=== PATIENT | female | born 1995 | race Caucasian/White ===

== ENCOUNTER 2016-11-02 01:14 | Emergency (ER) | payer OTHER ==
[~2016-11-02] VITALS: Ht 182.9 cm; Wt 145.4 kg
[~2016-11-02 01:14] MED LIST: HYDR-4003 PO; HYDR50CA PO; LACT10SO60 PO; ONDA4TAB9 PO; OXYC-465 PO
[2016-11-02 01:19] VITALS: BP 138/97; PULSE 100; RESP 18; O2SAT 99
--- NOTE | 2016-11-02 01:33 | ED.REPORT ---
HPI-Abd Pain F Under 40 Date of Service Nov 02, 2016 ED Provider: Devin Thompson DO A 21 year old female with a history of UTI, cholecystectomy, and obesity presents to the ED complaining of abnormal vaginal bleeding. The pt has been bleeding consistently for approximately two months. She estimates that this began on 09/24/2016. The first few weeks were characterized by heavy bleeding with clots, though the bleeding has decreased somewhat since. The pt also reports diarrhea for the last two weeks, though she denies fever or hematochezia. The pt began to experience heavy bleeding again tonight as well as sharp lower pelvic pains. This pain has not occurred before. The pt denies the possibility of and reports regular periods before the onset of this bleeding. She also denies pelvic trauma, abnormal vaginal discharge, ovarian cysts, or history of sexually transmitted infections. She is not currently sexually active and has not had intercourse since the end of last year. Her mother has experienced similar symptoms before, causing concern for ovarian cancer. The pt has not seen a trading manager since this began. Nursing Notes Stated Complaint: VAGINAL BLEEDING AND PAIN Chief Complaint: Female Abdominal Pain Nursing Notes Reviewed: Yes Allergies: Coded Allergies: No Known Allergies (Unverified , 04/15/16) Scheduled Lactulose (Lactulose) 20 Gm/30 Ml Solution 20 GM PO TIDAC Scheduled PRN Hydrocodone-Acetaminophen 5-325 mg (Hydrocodone-Acetaminophen 5-325 mg) 1 Each Tablet 1 TABLET PO Q4H PRN PRN For Pain Hydroxyzine Pamoate (Vistaril) 50 Mg Capsule 50 MG PO HS PRN PRN For Insomnia Ondansetron ODT (Zofran ODT) 4 Mg Tablet 4 MG PO Q4H PRN PRN For Nausea oxyCODONE-Acetaminophen 5-325 mg (oxyCODONE-Acetaminophen 5-325 mg) 1 Each Tablet 1-2 TAB PO Q6H PRN PRN For Pain oxyCODONE-Acetaminophen 7.5-325 mg (oxyCODONE-Acetaminophen 7.5-325 mg) 1 Each Tablet 1-2 TAB PO Q6H PRN PRN For Pain General Time Seen by MD: 01:32 Chief Complaint Abdominal pain, Vaginal bleeding Hx Obtained From: Patient Arrived By: Walk-in Sudden in Onset?: No Onset Occurred: More than a week ago... (2 months) Symptom Duration: Since onset Recent Healthcare: No recent doctor visit, No recent hospitalization Similar Sx Previous: No Past Medical History Past Medical History Hx of UTI Reports: Obesity Past Surgical History Reports: Cholecystectomy Family History noncontributory Smoking History Never Smoker Social History Alcohol Use: "Social" Other Social History: Good social support, Local resident Ambulatory Status Independent Review of Systems Constitutional: Denies: Fever Respiratory: Denies: Non-productive cough Cardiovascular: Denies: Chest pain GI: Reports: Abdominal pain (pelvic pain), Diarrhea, Denies: Hematochezia Female: Reports: Vaginal bleeding - abnl, Denies: Vaginal discharge Musculoskeletal: Denies: Back pain, Neck pain Complete sys rev & neg: except as marked. Physical Exam Initial Vital Signs Vital Signs (First) Date Time Temp Pulse Resp B/P Pulse Ox O2 Delivery O2 Flow Rate FiO2 11/02/16 01:19 36.1 100 18 138/97 99 Room Air Initial VS: Reviewed, Vital signs abnormal General/Constitutional: Awake, Alert Respiratory / Chest: Atraumatic, Breath sounds NL, Breath sounds = bilat, No respiratory distress Cardiovascular: Heart rate NL, Regular rhythm, Heart sounds NL Abdomen: Atraumatic, Soft diffuse lower pelvic pain Back: Atraumatic, Full range of motion Head / Eyes: Atraumatic, Normocephalic, PERRL, EOMI ENT: Atraumatic, Airway patent, Mucous membranes moist Skin: Atraumatic, Color NL, No rash, Warm, Dry Neurologic: Oriented X3, Speech NL, No motor deficits, No sensory deficits Neck: Atraumatic, Supple, Full range of motion Upper Extremity / MS: Atraumatic, Full range of motion Lower Extremity / Pelvis / MS: Atraumatic, Full range of motion Psychiatric: Affect NL, Mood NL Interpretation & Diagnostics US PELVIS TRANSABDOMINAL IMPRESSION: No acute abnormality. Radiologist: Rico Pratt MD 11/02/2016 - 3:36:33 AM PST Lab Results Interpretation Result Diagram: 11/02/16 0140 11/02/16 0140 Test 11/02/16 01:40 11/02/16 02:00 White Blood Count 12.4th/mm3 (3.8-10.1) Red Blood Count 5.12mil/mm3 (3.90-5.20) Hemoglobin 13.6g/dL (12.0-15.6) Hematocrit 41.6% (35.0-46.0) Mean Corpuscular Volume 81.3fL (81-100) Mean Corpuscular Hemoglobin 26.6pg (27.0-35.0) Mean Corpuscular Hemoglobin Concent 32.7% (32.0-37.0) Red Cell Distribution Width 14.9% (12.3-15.4) Platelet Count 292bil/L (150-400) Neutrophils (%) (Auto) 64.3% (40-74) Lymphocytes (%) (Auto) 27.5% (14-46) Monocytes (%) (Auto) 6.2% (4-12) Eosinophils (%) (Auto) 1.5% (0-5) Basophils (%) (Auto) 0.3% (0-3) Sodium Level 138mEq/L (134-144) Potassium Level 3.8mEq/L (3.5-5.2) Chloride Level 104mEq/L (97-108) Carbon Dioxide Level 19mmol/L (18-29) Blood Urea Nitrogen 9mg/dL (6-20) Creatinine 0.46mg/dL (0.57-1.00) Estimat Glomerular Filtration Rate 243mL/min (>59) Glucose Level 99mg/dL (60-99) Calcium Level 9.1mg/dL (8.5-10.1) Total Bilirubin 0.2mg/dL (0.0-1.2) Aspartate Amino Transf (AST/SGOT) 12U/L (0-50) Alanine Aminotransferase (ALT/SGPT) 12U/L (0-32) Alkaline Phosphatase 77U/L (25-150) Total Protein 7.6g/dL (6.4-8.4) Albumin 4.0g/dL (3.4-5.0) Lipase 36U/L (13-60) HCG Beta Subunit 0.500mIU/mL Urine Color Yellow (YELLOW) Urine Appearance Clear (CLEAR,HAZY) Urine pH 7.0 (5.0-8.0) Urine Specific [place] 1.020 (1.003-1.035) Urine Protein Negativemg/dL (NEG,TRACE) Urine Glucose (UA) Negativemg/dL (NEGATIVE) Urine Ketones Negativemg/dL (NEGATIVE) Urine Occult Blood Large (NEGATIVE) Urine Nitrite Negative (NEGATIVE) Urine Bilirubin Negative (NEGATIVE) Urine Urobilinogen Normalmg/dL (NORMAL) Urine Leukocyte Esterase Negative (NEGATIVE) Urine RBC >50/hpf (0-2) Urine WBC 0-5/hpf (0-5) Urine Epithelial Cells Moderate/hpf (NONE-MOD) Urine Crystals None seen (NONE SEEN) Urine Bacteria Moderate/hpf (NONE-FEW) Urine Hyaline Casts None/lpf (NONE) Urine Granular Casts None seen (NONE SEEN) Urine Waxy Casts None seen (NONE SEEN) Urine Red Blood Cell Casts None seen (NONE SEEN) Urine White Blood Cell Casts None seen (NONE SEEN) Urine Mucus Present (None Seen) Urine Trichomonas None seen (NONE SEEN) Urine Yeast None (NONE SEEN) Urinalysis Comment None Urine Culture Reflexed Indicated Lab Results Interpretation: Mild elevation of white count, no anemia Pulse Oximetry Interpretation Pulse Oximetry Interpretation: 99% on room air Pulse Oximetry: Pulse Ox normal Re-Eval/Medical Decision Med Decision/Clinical Course Laboratory is unremarkable. Ultrasound shows no dangerous cause of your pain. Oxycodone/APAP 5/325, one or 2 every 4-6 hours as needed for severe pain, #10 prescription written. Follow-up with your regular doctor in the next day or 2 for further evaluation and treatment. If your bleeding persists you may need hormonal supplementation. Source of Hx: Old records Re-Evaluation/Progress : Time of Eval: 03:24 Re-Evaluation/Progress Note: Care assumed by Dr. Ureña. Discussed the ultrasound result with the patient. No dangerous cause identified. Patient states that she has not had any abnormal vaginal discharge. She is not currently sexually active and she has not had intercourse since the end of last year. Patient will receive additional pain medication and should follow-up with her PCP. Patient understands and agrees with the plan to be discharged home. Discharge instructions and follow-up discussed. All questions were addressed. Return to the ED warnings given. Counseled Regarding: Diagnosis, Need for follow-up, When/why to return to ED Discharge & Departure Shift Change Sign-Out Patient Care Transferred: Yes Discussed Complaint(s): Yes Laboratory Evaluation: Lab evaluation discussed Imaging Studies: Ordered, not yet done Awaiting US result Primary Impression: Pelvic pain Additional Impression: Vaginal bleeding Disposition: Home Discharge Condition All VS Reviewed: Yes Condition: Stable Patient Instructions: Acute Abdominal Pain (ED) Additional Instructions: Laboratory is unremarkable. Ultrasound shows no dangerous cause of your pain. Oxycodone/APAP 5/325, one or 2 every 4-6 hours as needed for severe pain, #10 prescription written. Follow-up with your regular doctor in the next day or 2 for further evaluation and treatment. If your bleeding persists you may need hormonal supplementation. Referrals: Regina Mata ARNP (PCP) Care Transferred to: Dr. Ureña Care Transferred at: 02:30 Ana Maria Attestation Portions of this note were transcribed by Maverick Huerta and Asuncion Brandon. I, Dr. Thompson and Dr. Ureña personally performed the history, physical exam and medical decision-making; I reviewed and confirmed the accuracy of the information in the transcribed note. Signed by: Ana Maria Butler, 11/02/2016 0149 Signed by: Ana Maria Argueta, 11/02/2016 0433 copies to: Regina Mata ARNP Beia, Todd P DO Nov 02, 2016 01:33 MAVERICK HUERTA Nov 02, 2016 01:44 Asuncion Brandon Nov 02, 2016 03:28 Shane Ureña MD Nov 02, 2016 03:31
[2016-11-02] MEDS ORDERED: 0.9% Sodium Chloride 1,000 ML IV ONE (01:40)
[2016-11-02 02:15] LABS: APPEARANCE,URINE CLEAR (CLEAR,HAZY); COLOR,URINE YELLOW (YELLOW); OCCULT BLOOD,URINE LARGE (NEGATIVE); UROBILINOGEN,URINE NORMAL (NORMAL)
[2016-11-02 02:20] LABS: BASOPHILS % (AUTO) 0.3 % (0-3); EOSINOPHILS % (AUTO) 1.5 % (0-5); MONOCYTES % (AUTO) 6.2 % (4-12); Mean Corpuscular Hemoglobin 26.6 pg (27.0-35.0); Mean Corpuscular Volume 81.3 fL (81-100); NEUTROPHILS % (AUTO) 64.3 % (40-74); Platelet Count 292 bil/L (150-400)
[2016-11-02] MEDS ORDERED: HYDROmorphone 0.5 mg/0.5 mL iSecure Syringe IVPUSH PRN (03:10)
[2016-11-02] MEDS ORDERED: OXYC1TAB24 PO (03:32)
[2016-11-02 04:12] VITALS: BP 154/91; PULSE 80; O2SAT 99
--- NOTE | 2016-11-02 08:45 | DRSVH ---
PROCEDURE: US PELVIC SONOGRAM + TRANSVAGINAL SONOGRAM INDICATIONS: sudden onset pelvic pain, eval for torsion TECHNIQUE: Real-time scanning was performed of the pelvic organs, with image documentation. Additional endovagi nal scanning was necessary due to incomplete visualization of the adnexal and endometrial structures by transabdominal scanning. COMPARISON: None. FINDINGS: (orthogonal measurements) Uterus size: 6.68 cm, 2.55 cm, 2.97 cm Endometrium thickness: 9.60 mm Right ovary size: 1.99 cm, 1.26 cm, 2.14 cm Left ovary size: Suboptimally suboptimally visualized. Transabdominal scanning: Limited scanning through the kidneys shows no hydronephrosis. No pathologi c free abdominal or pelvic fluid. Endovaginal scanning: Uterus: Uterus is normal in size and appearance. Endometrium is within normal physiologic limits. Ovaries: Within normal physiologic limits. IMPRESSION: Left ovary suboptimally visualized otherwise no source for pelvic pain identified. Dictated by: German MORRISON Interpreted: Enma Matias MD on 11/02/2016 at 8:44 Transcribed by: OTTONIEL on 11/02/2016 at 8:45 Approved by: Enma Matias M.D. on 11/02/2016 at 11:48
== END 2016-11-02 04:14 | disposition home or self-care (01) ==
LOC: SED 01:14
DX: R10.2 Pelvic and perineal pain (principal); N93.9 Abnormal uterine and vaginal bleeding, unspecified
CPT/HCPCS: 36415; 76830; 76856; 80053; 81000; 81025; 83690; 84702; 85025; 87086; 87088; 87491; 87591; 96361; 96374; 96375; 99285; J1170; J7030

== ENCOUNTER 2017-01-08 22:07 | Emergency (ER) | payer OTHER ==
[~2017-01-08] VITALS: Ht 182.9 cm; Wt 136.4 kg
[~2017-01-08 22:07] MED LIST changes: +OXYC1TAB24 PO
[2017-01-08 22:17] VITALS: BP 122/91; PULSE 113; RESP 22; O2SAT 98
--- NOTE | 2017-01-08 22:36 | ED.REPORT ---
HPI-Extremity Problem Lower Date of Service January 08, 2017 ED Provider: Devin Thompson DO A 21 year old female with a history of depression and UTI presents to the ED complaining of bilateral ankle pain. The pt was running down a set of stairs this evening when she tripped and landed on her ankles. She experienced immediate pain which has persisted since. Nursing Notes Stated Complaint: INJURED BOTH ANKLES Chief Complaint: Extremity Trauma Nursing Notes Reviewed: Yes Allergies: Coded Allergies: No Known Allergies (Unverified , 04/15/16) Scheduled Lactulose (Lactulose) 20 Gm/30 Ml Solution 20 GM PO TIDAC Scheduled PRN Hydrocodone-Acetaminophen 5-325 mg (Hydrocodone-Acetaminophen 5-325 mg) 1 Each Tablet 1 TABLET PO Q4H PRN PRN For Pain Hydroxyzine Pamoate (Vistaril) 50 Mg Capsule 50 MG PO HS PRN PRN For Insomnia Ondansetron ODT (Zofran ODT) 4 Mg Tablet 4 MG PO Q4H PRN PRN For Nausea oxyCODONE-Acetaminophen 5-325 mg (oxyCODONE-Acetaminophen 5-325 mg) 1 Each Tablet 1-2 TAB PO Q6H PRN PRN For Pain oxyCODONE-Acetaminophen 7.5-325 mg (oxyCODONE-Acetaminophen 7.5-325 mg) 1 Each Tablet 1-2 TAB PO Q6H PRN PRN For Pain General Time Seen by MD: 22:35 Chief Complaint Other (Bilateral ankle pain) Hx Obtained From: Patient Arrived By: Wheelchair Onset Occurred: 1 - 4 hours ago Symptom Duration: Since onset Recent Healthcare: No recent hospitalization, Recent doctor visit Similar Sx Previous: No Past Medical History Past Medical History UTI asthma depression attempted suicide Reports: Obesity Past Surgical History Reports: Cholecystectomy Family History noncontributory Smoking History Never Smoker Social History Alcohol Use: "Social" Drug Use: THC Other Social History: Good social support, Local resident Ambulatory Status Independent Review of Systems Musculoskeletal: Reports: Joint pain (bilateral ankles) Skin: Denies Rash Complete sys rev & neg: except as marked. Respiratory: Denies: Non-productive cough, Shortness of breath Cardiovascular: Denies: Chest pain GI: Denies: Abdominal pain Physical Exam Initial Vital Signs Vital Signs (First) Date Time Temp Pulse Resp B/P Pulse Ox O2 Delivery O2 Flow Rate FiO2 01/08/17 22:17 36.9 113 22 122/91 98 Room Air Initial VS: Reviewed Lower Extremity / Pelvis / MS: Full range of motion, Neurologic intact, Vascular intact Ankle / Foot: Neurologic intact, Vascular intact lateral soft tissue swelling of bilateral ankles General/Constitutional: Awake, Alert Respiratory / Chest: Atraumatic, Breath sounds NL, Breath sounds = bilat, No respiratory distress Cardiovascular: Heart rate NL, Regular rhythm, Heart sounds NL Skin: Color NL, No rash, Warm, Dry Neurologic: Oriented X3, Speech NL, No motor deficits, No sensory deficits Head / Eyes: Atraumatic, Normocephalic, PERRL, EOMI ENT: Atraumatic, Airway patent, Mucous membranes moist Neck: Atraumatic, Supple, Full range of motion Abdomen: Atraumatic, Soft, Non-tender Back: Atraumatic, Full range of motion Upper Extremity / MS: Atraumatic, Full range of motion Psychiatric: Affect NL, Mood NL Interpretation & Diagnostics Pulse Oximetry Interpretation Pulse Oximetry Interpretation: 98% on room air Pulse Oximetry: Pulse Ox normal X-Ray Interpretation Xray Interpretation: abnormality of the talus X-Ray Ordered: Ankle right Interpretation / Wet Read by: Wet read ED physician Xray Interpretation: no acute findings X-Ray Ordered: Ankle left Interpretation / Wet Read by: Wet read ED physician Re-Eval/Medical Decision Source of Hx: Old records Re-Evaluation/Progress : Time of Eval: 23:41 Patient Status: Condition improved Re-Evaluation/Progress Note: Pt rechecked, who is resting comfortably. Radiology results, diagnosis and plan for discharge are discussed. The pt understands and agrees with the plan. All questions are addressed at this time. Counseled Regarding: Diagnosis, Lab results, Need for follow-up, When/why to return to ED Discharge & Departure Impression: Primary Impression: Right ankle injury Encounter type: initial encounter Qualified Code: S99.911A - Unspecified injury of right ankle, initial encounter Additional Impression: Left ankle injury Encounter type: initial encounter Qualified Code: S99.912A - Unspecified injury of left ankle, initial encounter Disposition: Home Discharge Condition All VS Reviewed: Yes Condition: Stable Patient Instructions: Ankle Sprain (ED), Crutch Instructions (ED) Additional Instructions: You have sprained both of your ankles and possibly fractured the right ankle. Take 1 to 2 Percocet every 6 hours as needed for severe pain. Do not drink, drive, or consume acetaminophen while taking the Percocet. Use the crutches for partial weight bearing. Follow up with orthopedics (Dr. Bey) this week. Call your primary care physician in the morning to arrange for a follow up appointment this week. Return to the emergency department if you develop any new or worsening symptoms. Referrals: Regina Mata ARNP (PCP) Sal Bey Attestation Portions of this note were transcribed by Maverick Huerta. I, Dr. Thompson personally performed the history, physical exam and medical decision-making; I reviewed and confirmed the accuracy of the information in the transcribed note. Signed by: Ana Maria Butler, 01/09/17 and 0039. copies to: Regina Mata ARNP; Sal Bey Todd P DO January 08, 2017 22:36 MAVERICK HUERTA January 08, 2017 23:40
[2017-01-08] MEDS ORDERED: _oxyCODONE/APAP 5-325 mg Tablet PO PRN (22:55)
[2017-01-08] MEDS ORDERED: oxyCODONE-Acetamin 5-325 mg Tablet PO ONE (22:55)
[2017-01-09 00:16] VITALS: BP 130/84; PULSE 100; RESP 18; O2SAT 95
--- NOTE | 2017-01-09 09:20 | DRSVH ---
PROCEDURE: X-RAY BILATERAL ANKLE, 3 VIEWS INDICATIONS: fall, injury TECHNIQUE: 6 views of the ankle were acquired. COMPARISON: None. FINDINGS: Bones: Ankle mortise is normally aligned bilaterally. No suspicious bony lesions. On the left, osseous density projects adjacent to the lateral talus, probably partial visualization o f the posterior facet of the subtalar joint. Elsewhere, no definite fractures Soft tissues: On the left, there is severe lateral soft tissue swelling/hematoma. On the right, there is diffuse so ft tissue swelling IMPRESSION: No definite fracture identified. Osseous density projecting adjacent to the lateral talus , which probably is the partially visualized posterior facet of the subtalar joint although if clinic ally indicated, CT could be performed to exclude fracture. Please correlate to point tenderness Severe lateral left ankle soft tissue swelling. Dictated by: Curly Ramsey M.D. on 01/09/2017 at 8:56 Approved by: Curly Ramsey M.D. on 01/09/2017 at 9:19
== END 2017-01-09 00:35 | disposition home or self-care (01) ==
LOC: SED 22:07
DX: S99.911A Unspecified injury of right ankle, initial encounter (principal); S99.912A Unspecified injury of left ankle, initial encounter; W01.0XXA Fall on same level from slipping, tripping and stumbling without subsequent striking against object, initial encounter; Y93.02 Activity, running; Y92.009 Unspecified place in unspecified non-institutional (private) residence as the place of occurrence of the external cause; Y99.8 Other external cause status
CPT/HCPCS: 73610; 96372; 99284; J1885